=== PATIENT | female | born 1965 | race Caucasian/White ===

== ENCOUNTER 2022-10-01 12:17 | Outpatient (CLI) | payer OTHER, SELFPAY | END 2022-10-01 12:18 | disposition home or self-care (01) | LOC: NFLDREF 10-03 05:00 | PROVIDERS: PCP Nurse Practitioner Family; Referring Provider Nurse Practitioner Family; Visit Provider Nurse Practitioner Family | DX: R30.0 Dysuria (principal) | CPT/HCPCS: 87086 ==